=== PATIENT | male | born 1945 | race Caucasian/White ===

== ENCOUNTER → 2023-11-04 08:44 | Outpatient (CLI) | payer MEDICARE, SELFPAY ==
--- NOTE | 2023-11-04 | DI.RAD.S_ITS ---
PROCEDURE: XR ABDOMEN 1V INDICATIONS: SCREEN FOR MRI TECHNIQUE: One view of the abdomen acquired. COMPARISON: None. FINDINGS: Surgical changes and devices: Postsurgical changes from remote appearing left hip hemiarthroplasty. No neural stimulator device is seen. No suspicious metallic densities projecting over the abdomen or pelvis. Bowel: Bowel gas pattern is normal. Soft tissues: Vascular calcifications are noted. Visualized solid organ contours appear normal in size. Bones: No suspicious bony lesions. IMPRESSION: No contraindication for MRI is seen. Approved by: Oli Yoon M.D. on 11/04/2023 at 9:54
--- NOTE | 2023-11-04 | DI.RAD.S_ITS ---
PROCEDURE: XR SKULL<4V INDICATIONS: SCREEN FOR MRI TECHNIQUE: One-view of the skull acquired. COMPARISON: [facility], CR, XR ABDOMEN 1V, 11/04/2023, 9:20. [facility], CR, XR CHEST 1V, 11/04/2023, 9:20. FINDINGS: Bones: No acute fractures. No suspicious bony lesions. Visualized sinuses appear clear. Soft tissues: No soft tissue calcifications. No radiopaque foreign bodies near the orbits. Surgical clips are noted in the left neck. IMPRESSION: No metallic foreign body near the orbits or contraindication for MRI can be seen. Approved by: Oli Yoon M.D. on 11/04/2023 at 9:50
--- NOTE | 2023-11-04 | DI.RAD.S_ITS ---
PROCEDURE: XR CHEST 1V INDICATIONS: SCREEN FOR MRI TECHNIQUE: One view of the chest was acquired. COMPARISON: None. FINDINGS: Surgical changes and devices: Surgical clips are seen in the lower neck. No pacemaker or prosthetic heart valve. No spinal stimulator leads are seen. Lungs and pleura: Lungs are clear. No pleural effusions or pneumothorax. Mediastinum: Mediastinal contours appear normal. Heart size is normal. Aortic atherosclerotic calcifications are present. Bones and chest wall: No suspicious bony lesions. Overlying soft tissues appear unremarkable. IMPRESSION: No acute cardiopulmonary abnormality. No contraindication for MRI is seen. Approved by: Oli Yoon M.D. on 11/04/2023 at 9:53
--- NOTE | 2023-11-04 08:48 | DI.MRI.S_ITS ---
PROCEDURE: MR HEAD/BRAIN WO CON INDICATIONS: Parkinson's disease with dyskinesia TECHNIQUE: Non-contrast axial T1 spin echo, axial T2 fast spin echo, sagittal and axial FLAIR, coronal T2 fast spin echo, axial gradient echo, axial diffusion and ADC through the brain. COMPARISON: None. FINDINGS: Image quality: This examination is limited by involuntary motion artifact. CSF spaces: The ventricles are enlarged, with ex vacuo dilatation also seen involving the posterior horn of the left lateral ventricle. Basal cisterns are patent. No extra-axial fluid collections. 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 Milder areas of prior infarction can be seen elsewhere No intracranial bleeds or mass effects. Relatively prominent generalized brain parenchymal volume loss is seen, without abnormal regional volume loss. Moderate to prominent chronic small vessel ischemic change can be seen. Brainstem appears normal. Diffusion-weighted images show no acute infarct. No chronic ischemic insults. Normal intravascular flow voids are present. 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 When discovered in isolation, this is considered to be a developmental variant of no clinical consequence. Skull and face: Calvarial bone marrow is normal in signal. Orbits are normal. Sinuses: No significant active paranasal sinus disease can be seen. There is [id number] right mastoid air cell fluid. 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 Generalized brain parenchymal volume loss is seen, without abnormal regional volume loss. Moderate to severe chronic small vessel ischemic change is seen. Dictated by: Michi Aguirre M.D. on 11/04/2023 at 10:00 Approved by: Michi Aguirre M.D. on 11/04/2023 at 10:03
== END ==
PROVIDERS: Referring Provider Psychiatry & Neurology Neurology; Visit Provider Psychiatry & Neurology Neurology
DX: G20.B1 Parkinson's disease with dyskinesia, without mention of fluctuations (principal); I69.354 Hemiplegia and hemiparesis following cerebral infarction affecting left non-dominant side; I69.311 Memory deficit following cerebral infarction; F02.80 Dementia in other diseases classified elsewhere, unspecified severity, without behavioral disturbance, psychotic disturbance, mood disturbance, and anxiety; Z13.89 Encounter for screening for other disorder; F33.9 Major depressive disorder, recurrent, unspecified; I10 Essential (primary) hypertension; R26.89 Other abnormalities of gait and mobility; M62.81 Muscle weakness (generalized); E78.5 Hyperlipidemia, unspecified; R60.0 Localized edema
CPT/HCPCS: 70250; 70551; 71045; 74018